=== PATIENT | female | born 1940 | race Two or more races ===

== ENCOUNTER 2022-02-08 10:36 | Inpatient (IN) | payer OTHER ==
[~2022-02-08] VITALS: Ht 152.4 cm; Wt 68.0 kg
[2022-02-08] MEDS ORDERED: VITAMIN C PO (11:00)
[2022-02-08] MEDS ORDERED: FIORICET PO (11:01)
[2022-02-14] MEDS ORDERED: COMBIGAN EYE DRO5 ML (08:58)
[2022-02-14] MEDS ORDERED: LUMIGAN2.5 M1 (08:58)
[2022-02-14] MEDS ORDERED: ALPRAZOLAM0.5 MG (08:58)
[2022-02-14] MEDS ORDERED: DAFLONEX-XL 11300 MG (08:58)
[2022-02-14] MEDS ORDERED: VITAMIN C100 MG (08:59)
[2022-02-14] MEDS ORDERED: OMEPRAZOLE20 MG (08:59)
[2022-02-14] MEDS ORDERED: BUTALBITAL-ACE1 EAC3 (09:03)
[2022-02-15] MEDS ORDERED: INTEGRA PLUS C1 EACH PO (07:42)
[2022-02-15] MEDS ORDERED: OXYC1TAB9 PO (07:42)
[2022-02-15] MEDS ORDERED: XARELTO10 MG PO (07:42)
[2022-02-15] MEDS ORDERED: BACTRIM DS TAB1 EACH PO (07:42)
== END 2022-02-15 14:59 | DRG 470 ==
LOC: SURG 02-13 06:41 → O/R 02-13 06:41 → SURG 02-13 11:15
PROVIDERS: ADMIT Orthopaedic Surgery Sports Medicine; ATTEND Orthopaedic Surgery Sports Medicine
PROC: 0SRD0JZ Replacement of Left Knee Joint with Synthetic Substitute, Open Approach (ICD-10-PCS; principal; 2022-02-13 11:15)
DX: M17.12 Unilateral primary osteoarthritis, left knee (principal); Z96.652 Presence of left artificial knee joint; Z20.822 Contact with and (suspected) exposure to COVID-19